=== PATIENT | male | born 1940 | race Two or more races ===

== ENCOUNTER 2018-01-20 12:40 | Outpatient (CLI) | payer OTHER | END 2018-01-20 12:56 | disposition home or self-care (01) | LOC: LAB 12:40 | DX: D50.0 Iron deficiency anemia secondary to blood loss (chronic) (principal); C18.6 Malignant neoplasm of descending colon; C61 Malignant neoplasm of prostate ==

== ENCOUNTER 2018-01-21 09:50 | Outpatient (CLI) | payer OTHER | END 2018-01-21 10:08 | disposition home or self-care (01) | LOC: TOM 09:50 | DX: D50.0 Iron deficiency anemia secondary to blood loss (chronic) (principal); K30 Functional dyspepsia; Z85.46 Personal history of malignant neoplasm of prostate | CPT/HCPCS: 74177; Q9965 ==

== ENCOUNTER → 2018-01-29 06:00 | Outpatient (CLI) | payer OTHER ==
[~2018-01-29] VITALS: Ht 170.2 cm; Wt 78.0 kg
[~2018-01-29 06:00] MED LIST: ABATINEX680 MG; AMBIEN10 MG PO; BACTRIM 400-801 EACH PO; INTEGRA F CAPS1 EACH PO; Intestinex CAP PO; LEVAQUIN500 MG; LISINOPRIL10 MG PO; NORVASC5 MG PO; PERCOCET 5-3251 EACH; PROTONIX40 MG PO; ULTRACET PO; VITAMIN B-12 51 EACH SL
== END | disposition home or self-care (01) ==
LOC: SURH → LAB 06:00 → RAD 06:00 → SURH 02-05 09:55 → EDSTATUS 02-05 12:23 → LAB 02-05 12:30 → SURH 02-05 17:25
DX: C18.4 Malignant neoplasm of transverse colon (principal); R59.0 Localized enlarged lymph nodes; K92.2 Gastrointestinal hemorrhage, unspecified; Z85.038 Personal history of other malignant neoplasm of large intestine; Z01.818 Encounter for other preprocedural examination; Z01.812 Encounter for preprocedural laboratory examination

== ENCOUNTER 2018-01-29 10:18 | Inpatient (IN) | payer OTHER ==
[~2018-01-29] VITALS: Ht 170.2 cm; Wt 78.0 kg
[2018-01-29] MEDS ORDERED: PROTONIX40 MG PO (11:30)
[2018-01-29] MEDS ORDERED: LISINOPRIL10 MG PO (11:30)
[2018-01-29] MEDS ORDERED: NORVASC5 MG PO (11:30)
[2018-01-29] MEDS ORDERED: AMBIEN10 MG PO (11:31)
[2018-02-11] MEDS ORDERED: PROTONIX40 MG PO (13:46)
[2018-02-11] MEDS ORDERED: LISINOPRIL10 MG PO (13:46)
[2018-02-11] MEDS ORDERED: ULTRACET PO (13:46)
[2018-02-11] MEDS ORDERED: Intestinex CAP PO (13:46)
[2018-02-11] MEDS ORDERED: INTEGRA F CAPS1 EACH PO (13:46)
[2018-02-11] MEDS ORDERED: BACTRIM 400-801 EACH PO (13:46)
[2018-02-11] MEDS ORDERED: NORVASC5 MG PO (13:46)
[2018-02-11] MEDS ORDERED: VITAMIN B-12 51 EACH SL (13:46)
== END 2018-02-11 13:59 | disposition home or self-care (01) | DRG 330 ==
LOC: SURH 02-03 12:10 → AMB-ENDOS 02-04 09:51 → EDSTATUS 02-04 12:08 → AMB-ENDOS 02-04 14:02 → SURH 02-11 13:59
PROVIDERS: Colon & Rectal Surgery
PROC: 30233N1 Transfusion of Nonautologous Red Blood Cells into Peripheral Vein, Percutaneous Approach (ICD-10-PCS; 2018-02-03)
PROC: 0DJD8ZZ Inspection of Lower Intestinal Tract, Via Natural or Artificial Opening Endoscopic (ICD-10-PCS; 2018-02-04)
PROC: 07TC4ZZ Resection of Pelvis Lymphatic, Percutaneous Endoscopic Approach (ICD-10-PCS; 2018-02-05)
PROC: 0DBU4ZZ Excision of Omentum, Percutaneous Endoscopic Approach (ICD-10-PCS; 2018-02-05)
PROC: 0DTF4ZZ Resection of Right Large Intestine, Percutaneous Endoscopic Approach (ICD-10-PCS; principal; 2018-02-05 07:00)
DX: C18.4 Malignant neoplasm of transverse colon (principal); K92.2 Gastrointestinal hemorrhage, unspecified; T81.4XXA Infection following a procedure, initial encounter; L03.311 Cellulitis of abdominal wall; I11.9 Hypertensive heart disease without heart failure; D50.0 Iron deficiency anemia secondary to blood loss (chronic); G47.09 Other insomnia; R59.0 Localized enlarged lymph nodes

== ENCOUNTER 2018-02-17 10:24 | Emergency (ER) | payer OTHER ==
[~2018-02-17] VITALS: Ht 170.2 cm; Wt 77.1 kg
[~2018-02-17 10:24] MED LIST changes: -ABATINEX680 MG; -LEVAQUIN500 MG; -PERCOCET 5-3251 EACH
[2018-02-17] MEDS ORDERED: LEVAQUIN500 MG (10:48)
[2018-02-17] MEDS ORDERED: PERCOCET 5-3251 EACH (10:48)
[2018-02-17] MEDS ORDERED: ABATINEX680 MG (10:48)
== END 2018-02-17 17:47 | disposition home or self-care (01) ==
LOC: ER 10:24
DX: I82.492 Acute embolism and thrombosis of other specified deep vein of left lower extremity (principal); I73.89 Other specified peripheral vascular diseases; M79.605 Pain in left leg

== ENCOUNTER 2018-02-20 11:56 | Outpatient (CLI) | payer OTHER ==
[~2018-02-20 11:56] MED LIST changes: +ABATINEX680 MG; +LEVAQUIN500 MG; +PERCOCET 5-3251 EACH
== END 2018-02-20 12:01 | disposition home or self-care (01) ==
LOC: LAB 11:56
DX: D64.89 Other specified anemias (principal); N19 Unspecified kidney failure

== ENCOUNTER → 2018-03-18 12:04 | Outpatient (CLI) | payer OTHER | END | disposition home or self-care (01) | LOC: LAB 12:04 | DX: D64.89 Other specified anemias (principal) ==

== ENCOUNTER → 2018-03-25 | Emergency (ER) | payer OTHER ==
[~2018-03-25] VITALS: Ht 170.2 cm; Wt 74.8 kg
[~2018-03-25] MED LIST changes: +DULCOLAX STOOL100 MG PO; +POLY119PG PO
== END | disposition left against medical advice (07) ==
LOC: ER 11:15
DX: K59.09 Other constipation (principal); K62.89 Other specified diseases of anus and rectum

== ENCOUNTER 2018-03-26 11:25 | Emergency (ER) | payer OTHER ==
[~2018-03-26] VITALS: Ht 170.2 cm; Wt 70.8 kg
[~2018-03-26 11:25] MED LIST changes: -DULCOLAX STOOL100 MG PO; -POLY119PG PO
[2018-03-26] MEDS ORDERED: DULCOLAX STOOL100 MG PO (15:48)
[2018-03-26] MEDS ORDERED: POLY119PG PO (15:48)
== END 2018-03-26 16:24 | disposition home or self-care (01) ==
LOC: ER 11:25
DX: K59.09 Other constipation (principal); R10.84 Generalized abdominal pain

== ENCOUNTER 2018-03-29 16:01 | Emergency (ER) | payer OTHER ==
[~2018-03-29] VITALS: Ht 170.2 cm; Wt 70.8 kg
[~2018-03-29 16:01] MED LIST changes: +DULCOLAX STOOL100 MG PO; +POLY119PG PO
== END 2018-03-30 06:17 | disposition home or self-care (01) ==
LOC: ER 16:01
DX: K59.09 Other constipation (principal)

== ENCOUNTER 2018-06-12 11:08 | Outpatient (CLI) | payer OTHER | END 2018-06-12 11:16 | disposition home or self-care (01) | LOC: NUCLEAR 11:08 | DX: C18.4 Malignant neoplasm of transverse colon (principal); I87.2 Venous insufficiency (chronic) (peripheral) ==

== ENCOUNTER 2018-08-09 09:31 | Emergency (ER) | payer OTHER ==
[~2018-08-09] VITALS: Ht 170.2 cm; Wt 77.1 kg
== END 2018-08-09 12:17 | disposition home or self-care (01) ==
LOC: ER 09:31
DX: M10.072 Idiopathic gout, left ankle and foot (principal); M25.572 Pain in left ankle and joints of left foot

== ENCOUNTER 2018-11-28 07:15 | Day surgery (SDC) | payer OTHER | END 2018-11-28 14:30 | disposition home or self-care (01) | LOC: AMB-ENDOS 07:15 | DX: K52.89 Other specified noninfective gastroenteritis and colitis (principal); K64.1 Second degree hemorrhoids ==

== ENCOUNTER 2020-01-30 14:41 | Emergency (ER) | payer OTHER ==
[~2020-01-30] VITALS: Ht 172.7 cm; Wt 81.6 kg
== END 2020-01-30 19:01 | disposition home or self-care (01) ==
LOC: ER 14:41
DX: I86.1 Scrotal varices (principal); N50.812 Left testicular pain

== ENCOUNTER 2020-02-05 12:40 | Outpatient (CLI) | payer OTHER | END 2020-02-05 12:41 | disposition home or self-care (01) | LOC: MRI 12:40 | DX: C61 Malignant neoplasm of prostate (principal) | CPT/HCPCS: 72148 ==

== ENCOUNTER 2020-06-06 15:07 | Emergency (ER) | payer OTHER ==
[~2020-06-06] VITALS: Ht 172.7 cm; Wt 79.4 kg
[2020-06-06] MEDS ORDERED: RESTORIL30 MG PO (15:21)
[2020-06-06] MEDS ORDERED: VITAMIN B-12500 MC2 PO (15:21)
== END 2020-06-06 18:51 ==
LOC: ER 15:07
DX: S33.5XXA Sprain of ligaments of lumbar spine, initial encounter (principal); M19.011 Primary osteoarthritis, right shoulder; M19.012 Primary osteoarthritis, left shoulder; M79.671 Pain in right foot; X50.9XXA Other and unspecified overexertion or strenuous movements or postures, initial encounter; Y93.89 Activity, other specified; Y92.89 Other specified places as the place of occurrence of the external cause; Y99.8 Other external cause status

== ENCOUNTER → 2022-05-24 | Emergency (ER) | payer OTHER ==
[~2022-05-24] VITALS: Ht 172.7 cm; Wt 78.0 kg
[~2022-05-24] MED LIST changes: +RESTORIL30 MG PO; +VITAMIN B-12500 MC2 PO
== END | disposition left against medical advice (07) ==
LOC: ER 16:48
DX: L03.114 Cellulitis of left upper limb (principal); N50.3 Cyst of epididymis

== ENCOUNTER → 2022-07-14 | Emergency (ER) | payer OTHER ==
[~2022-07-14] VITALS: Ht 172.7 cm; Wt 79.4 kg
== END | disposition left against medical advice (07) ==
LOC: ER 14:09
DX: Z53.21 Procedure and treatment not carried out due to patient leaving prior to being seen by health care provider (principal)